=== PATIENT | male | born 1970 | race Caucasian/White ===

== ENCOUNTER 2024-07-12 06:32 | Emergency (ER) | payer OTHER, SELFPAY ==
[2024-07-12 06:42] VITALS: BP 150/106
[2024-07-12 07:11] VITALS: BP 141/88
[2024-07-12 07:25] LABS: Carboxyhemoglobin 23.6 %
--- NOTE | 2024-07-12 07:49 | ED.GENMED ---
History of Present Illness
General
Chief Complaint: Exposure-Chemical
Time Seen by Provider: 07/12/24 07:25
History of Present Illness
History of Present Illness:
54-year-old male presents to the emergency department for evaluation of congestion and mild headache. High carbon oxide levels were detected at home this morning after EMS was called for a syncopal event at his daughter. He reports feeling
dyspneic while using his CPAP overnight. Feeling improved since arriving to the hospital
Past History
Past History
ED Past Medical History: None
ED Past Surgical History: None
Social History
Tobacco: Non-smoker
Alcohol: Occasional
Family History
Family History: Negative Diabetes or CAD
Review of Systems
Review of Systems
Allergies reviewed?: Yes
All Other Systems: ROS reviewed and negative except as documented in HPI and ROS
Phy Exam
Physical Exam
Physical Exam:
GEN: Well appearing, NAD, WDWN
HEENT: Oral mucosa moist, no scleral icterus
Cardiac: Tachycardic, regular
Lung: No respiratory distress, no tachypnea
MSK: No gross deformity or injuries
Skin: Good color, no pallor or jaundice, no rashes
Neuro: AO x3, moves all extremities freely
Psych: Calm, cooperative
Course
Orders/Labs/Results
Orders:
Orders
07/12/24 07:18
Carboxyhemoglobin Urgent
07/12/24 10:23
Carboxyhemoglobin Routine
Vital Signs
Initial and Last Documented VS:
Initial Vital Signs
Temp Pulse Resp BP Pulse Ox
98.1 F 116 22 150/106 97
07/12/24 06:42 07/12/24 06:42 07/12/24 06:42 07/12/24 06:42 07/12/24 06:42
Last Documented Vital Signs
Temp Pulse Resp BP Pulse Ox
98.1 F 96 17 134/91 99
07/12/24 06:42 07/12/24 11:15 07/12/24 11:15 07/12/24 11:00 07/12/24 11:15
MDM/Problems Addressed
MDM/Problems Addressed:
CO level markedly improved after high flow O2, symptoms improved
*Critical Care Note
Total Time (30-74mins, 75-104mins- exclusive of procedures): Not Applicable
ED Attending Note
-
Portions of this chart may have been created with voice recognition software.� Occasional wrong word or��sound alike� substitutions may have occurred due to the inherent limitations of voice recognition software.
Discharge Plan
Departure
Patient Disposition: Home (Routine Discharge)
Date of Disposition: 07/12/24
Time of Disposition: 11:15
Patient with high blood pressure during this ER visit?: No
Discharge Problem:
Toxic effect of carbon monoxide
Instructions: Carbon Monoxide Poisoning (DC)
Prescriptions:
No Action
oxycodone-acetaminophen 5 MG/325 MG tablet
1 tab PO Q4HPRN PRN (Reason: pain) Qty: 20 0RF
Referrals:
Josef Fournier, DO [Family Provider] -
Interventions
Interventions:
*Risk Screen - Suicide Last Done: 07/12/24 06:42
*General Assessment Last Done: 07/12/24 11:45
*Neglect/Abuse Screening Last Done: 07/12/24 06:42
ED- Fall Risk Assessment Last Done: 07/12/24 11:45
*ED COVID-19 Vaccine History Last Done: 07/12/24 11:45
*Nursing Disposition Last Done: 07/12/24 11:45
ED- Pulmonary Assessment Last Done: 07/12/24 07:48
ED-Skin Assessment Last Done: 07/12/24 07:48
Discharge Date and Time
Discharge Date/Time: 07/12/24 11:51
Print Language: LAO
[2024-07-12 08:00] VITALS: BP 139/86
[2024-07-12 09:00] VITALS: BP 143/81
[2024-07-12 10:00] VITALS: BP 139/89
[2024-07-12 10:31] LABS: Carboxyhemoglobin 7.8 %
[2024-07-12 11:00] VITALS: BP 134/91
== END 2024-07-12 11:51 | disposition home or self-care (01) ==
LOC: EMR 06:32
PROVIDERS: Physician Assistant; EMERGENCY PHYSICIAN Emergency Medicine; FAMILY PHYSICIAN Student in an Organized Health Care Education/Training Program
DX: T58.91XA Toxic effect of carbon monoxide from unspecified source, accidental (unintentional), initial encounter (principal); R51.9 Headache, unspecified; Y92.009 Unspecified place in unspecified non-institutional (private) residence as the place of occurrence of the external cause
CPT/HCPCS: 99283; 82375